=== PATIENT | female | born 1980 | race Caucasian/White ===

== ENCOUNTER 2016-04-09 22:21 | Emergency (ER) | payer OTHER ==
[~2016-04-09] VITALS: Ht 165.1 cm; Wt 122.7 kg
[~2016-04-09 22:21] MED LIST: CYCL10TA9 PO; OXYC-284 PO; PAROXETINE; PENI500T PO
[2016-04-09 22:24] VITALS: BP 138/85; PULSE 82; RESP 16; O2SAT 96
--- NOTE | 2016-04-09 23:38 | ED.REPORT ---
HPI-General Illness Date of Service Apr 09, 2016 ED Provider: Franki Patel MD Patient is a 35 year old female who presents to the ED complaining of right sided ear pain that began today, after 5 days of upper respiratory symptoms. Patient reports associated sore throat, cough, and nasal congestion. Patient denies a productive cough. Patient reports having a fever several days ago, but denies having a fever at this time. Patient has recently been around several other individuals that are sick with similar symptoms. Nursing Notes Stated Complaint: RT EAR PAIN Chief Complaint: FLU/Cold Symptoms Nursing Notes Reviewed: Yes Allergies: Coded Allergies: No Known Allergies (Verified Allergy, Unknown, 04/09/16) Scheduled Amoxicillin (Amoxicillin) 500 Mg Tablet 500 MG PO TID Penicillin V Potassium (Penicillin V Potassium) 500 Mg Tablet 500 MG PO TID Scheduled PRN Cyclobenzaprine (Cyclobenzaprine) 10 Mg Tablet 10 MG PO HS PRN PRN Spasm Oxycodone HCl/Acetaminophen 5-325 (Percocet 5-325) 1 Each Tablet 1 EACH PO Q4 PRN PRN For Pain Miscellaneous Medications ([Paroxetine]) General Time Seen by MD: 23:37 Chief Complaint Ear pain Hx Obtained From: Patient Arrived By: Walk-in Sudden in Onset?: No Onset Occurred: 1 - 4 hours ago Symptom Duration: Since onset Location: : Ear right Quality: Painful Severity: Current: Moderate Severity: Maximum: Moderate Recent Healthcare: No recent doctor visit, No recent hospitalization Similar Sx Previous: No Past Medical History Past Medical History Depression Obesity Past Surgical History Reports: Appendectomy, , Cholecystectomy Family History Noncontributory Smoking History Never Smoker Social History Alcohol Use: Denies alcohol use Drug Use: Denies drug use Other Social History: Local resident Occupation lives with and daughter Ambulatory Status Independent Review of Systems Full Review of Systems Constitutional: Denies: Chills, Fever Ears / Nose / Throat: Reports: Earache right, Nasal congestion, Sore throat (/) Respiratory: Reports: Non-productive cough, Denies: Prod cough, yellow Complete sys rev & neg: except as marked. Physical Exam Vital Signs Vital Signs Date Time Temp Pulse Resp B/P Pulse Ox O2 Delivery O2 Flow Rate FiO2 04/10/16 00:12 36.4 82 16 138/85 96 Room Air 04/09/16 22:24 36.4 82 16 138/85 96 Room Air Initial VS: Reviewed Extremities: Vascular intact, Neuro intact Skin: Warm, Dry, No cyanosis Neurologic: Alert, Oriented, Nonfocal Psychiatric: Mood/affect normal, Behavior normal, Normal thought content General/Constitutional: Awake, Alert, No acute distress Appearance / Presentation: Positive: Obese, morbidly Head / Eyes: Normocephalic, PERRL, Conjunctiva NL ENT: Airway patent, Pharynx NL Right Ear / Mastoid: Positive: Tympanic membrane bulging, Tympanic membrane red Left Ear / Mastoid: Negative: Tympanic membrane bulging, Tympanic membrane red Neck: Supple, No adenopathy Respiratory / Chest: Breath sounds NL, Breath sounds = bilat, No respiratory distress, No rales, No rhonchi, No wheezing Cardiovascular: Heart rate NL, Regular rhythm, No gallop, No murmurs, No rubs Interpretation & Diagnostics Interpretation & Diagnostics: NEGATIVE FOR INFLUENZA TYPE A AND B Rapid bedside strep: Negative Re-Eval/Medical Decision Med Decision/Clinical Course 35-year-old with right-sided otalgia has otitis media by exam. Begun with amoxicillin and ibuprofen for pain relief. Follow up with PCP. Source of Hx: Old records Time of Eval: 23:54 Patient Status: Condition improved Re-Evaluation/Progress Note: Patient was informed that she has an ear infection, which will be treated with antibiotics. Patient understands and agrees with the plan to be discharged home. Discharge instructions and follow-up discussed. All questions were addressed. Return to the ED warnings given. Counseled Regarding: Diagnosis, Need for follow-up, When/why to return to ED Discharge & Departure Primary Impression: Otitis media Otitis media type: suppurative Laterality: right Chronicity: acute Recurrence: not specified Spontaneous tympanic membrane rupture: without spontaneous rupture Qualified Code: H66.001 - Acute suppurative otitis media without spontaneous rupture of ear drum, right ear Disposition: Home Discharge Condition All VS Reviewed: Yes Condition: Stable Patient Instructions: Otitis Media (ED) Additional Instructions: Amoxicillin three times daily for ten days Ibuprofen three times daily as needed for pain Drink plenty of fluids and stay well-hydrated Follow-up with your doctor in the office Return if any immediate issues. Referrals: DELISA DORADO MD (PCP) Scribe Attestation Portions of this note were transcribed by Yuliet Rader. I, Dr. Patel personally performed the history, physical exam and medical decision-making; I reviewed and confirmed the accuracy of the information in the transcribed note. Signed by: Lana Hunt, 04/10/2016 0324 copies to: DELISA DORADO MD,Franki Ha MD Apr 09, 2016 23:38 Yuliet Rader Apr 09, 2016 23:42
[2016-04-09] MEDS ORDERED: AMOX500T2 PO (23:47)
[2016-04-10 00:12] VITALS: BP 138/85; PULSE 82; RESP 16; O2SAT 96
== END 2016-04-10 00:12 | disposition home or self-care (01) ==
LOC: SED 22:21
DX: H66.001 Acute suppurative otitis media without spontaneous rupture of ear drum, right ear (principal); J02.9 Acute pharyngitis, unspecified; R05 Cough; R09.81 Nasal congestion